=== PATIENT | male | born 1980 | race Caucasian/White ===

== ENCOUNTER 2020-06-04 13:17 | Emergency (ER) | payer OTHER, SELFPAY ==
--- NOTE | ~2020-06-04 | XR_ITS ---
EXAMINATION: XR chest 1V portable 06/04/2020 16:41 INDICATION: Fever, cough and chills. Sore throat. PROCEDURE: 2 view chest COMPARISON: No prior studies for comparison. FINDINGS: The lungs are clear. The cardiomediastinal silhouette is within normal limits. There are no pleural effusions. There is no pneumothorax suspected. IMPRESSION: 1: NO ACUTE CARDIOPULMONARY DISEASE. Reviewed, dictated and finalized at location B.
[2020-06-04 13:52] VITALS: BP 132/97; PULSE 71; RESP 16; TEMP 36.3; O2SAT 99
[2020-06-04 16:26] VITALS: BP 133/78; PULSE 78; RESP 16; O2SAT 100
--- NOTE | 2020-06-04 16:26 | PC.NURSE ---
STREP AND COVID SWAB SENT TO LAB.
--- NOTE | 2020-06-04 16:46 | ED.URI ---
HPI - URI/Sore Throat General Chief Complaint: Upper Respiratory Infection Stated Complaint: r/o covid Time Seen by Provider: 06/04/20 15:26 Source: patient Mode of arrival: ambulatory Limitations: no limitations History of Present Illness HPI Narrative: This is a 39-year-old male that presents to the emergency department for cold symptoms x3 days. Reports fever, headache, sore throat, and cough. Denies chest pain, shortness of breath. Related Data Home Medications Medication Instructions Recorded Confirmed divalproex 500 mg PO DAILY 06/04/20 Allergies Allergy/AdvReac Type Severity Reaction Status Date / Time No Known Allergies Allergy Unverified 04/04/18 12:47 Review of Systems Review of Systems: Narrative: CONSTITUTIONAL: Reports fever, chills ENT: Reports congestion, sore throat. Denies otalgia. CARDIOVASCULAR: Denies chest pain RESPIRATORY: Reports cough. Denies dyspnea. All systems reviewed & are unremarkable except as noted in HPI and below PMFSH Past Medical History Medical History (Updated 06/04/20 @ 17:41 by Taylor Mota PA-C) History of epilepsy Social History Social History (Updated 06/04/20 @ 16:48 by Taylor Mota PA-C) Substance use: never Gender identity (if verbalized by the patient): Male Exam Narrative: Exam Narrative: GENERAL: Well-appearing, well-nourished, and in no acute distress. HEAD: Normocephalic, atraumatic. EYES: EOMI. ENT: Nares clear, no rhinorrhea or epistaxis. Mucous membranes moist. Oropharynx with mild symmetric tonsillar hypertrophy and erythema, mild exudate, no other lesions. Uvula midline. Bilateral TMs pearly fagan non-bulging NECK: Supple. No adenopathy or masses. CHEST: Clear to auscultation. No respiratory distress. No wheezes rales or rhonchi HEART: Regular rate and rhythm. No murmur heard. Normal peripheral pulses. EXTREMITIES: Normal range of motion. No edema. SKIN: Warm, dry, no rash. NEURO: No focal deficits. Alert and oriented x3. PSYCH: Normal mood and affect Course Vital Signs Vital signs: Vital Signs Temperature 97.4 F L 06/04/20 13:52 Pulse Rate 71 06/04/20 13:52 Respiratory Rate 16 06/04/20 13:52 Blood Pressure 132/97 H 06/04/20 13:52 Pulse Oximetry 99 06/04/20 13:52 Temperature 97.4 F L 06/04/20 13:52 Pulse Rate 78 06/04/20 16:26 Respiratory Rate 16 06/04/20 16:26 Blood Pressure 133/78 06/04/20 16:26 Pulse Oximetry 100 06/04/20 16:26 MDM - URI/Sore Throat MDM Narrative Medical decision making narrative: Patient presents the emergency department for cold symptoms x3 days. He is afebrile and nontoxic-appearing. Oxygen saturation is normal on room air. Chest x-ray is clear. Strep and mono screens were negative. SARS-CoV-2 was sent. Patient was instructed on symptomatic care of viral infection. He is to follow-up with primary care doctor. He was given warnings to return to the ER Lab Data Attestation: I reviewed the patient's lab results. Labs: Lab Results 06/04/20 06/04/20 06/04/20 Range/Units 16:25 16:25 16:25 Monoscreen Negative (Negative) SARS-CoV-2 RNA (RT-PCR) Pending Grp A Beta Strep Ag Pending Strep Screen Presumptive Negative *(Reference Range: Negative)* Imaging Data Radiologist's impression: ITS Impressions Chest X-Ray 06/04/20 16:45 IMPRESSION: 1: NO ACUTE CARDIOPULMONARY DISEASE. Critical Care Time Critical Care Time Critical Care Time: No Discharge Plan Discharge Clinical Impression: Viral infection, Person under investigation for severe acute respiratory syndrome coronavirus 2 (SARS-CoV-2) infection Patient Disposition: Home, Self-Care Condition: Stable Instructions: Viral Syndrome (ED) Additional Instructions: Return to the emergency department for worsening symptoms, or any other concerns Remain well-hydrated, get plenty of rest. Take Tylenol or Motrin [id number]
[2020-06-04 17:00] LABS: Monoscreen Negative (Negative); Negative Monotest Control Negative (Negative); Positive Monotest Control Positive (Positive)
[2020-06-04 17:50] VITALS: BP 118/75; PULSE 78; RESP 16; O2SAT 100
[2020-06-05 13:17] LABS: SARS-CoV-2 RNA PCR Negative
== END 2020-06-04 17:51 | disposition home or self-care (01) ==
PROVIDERS: Physician Assistant; Emergency Provider Emergency Medicine; PCP Internal Medicine
DX: B34.9 Viral infection, unspecified (principal); Z20.828 Contact with and (suspected) exposure to other viral communicable diseases; G40.909 Epilepsy, unspecified, not intractable, without status epilepticus
CPT/HCPCS: 36415; 71045; 86308; 87081; 87635; 87880; 99283; C9803; U0003